=== PATIENT | male | born 1965 | race Caucasian/White ===

== ENCOUNTER → 2020-04-21 | Outpatient (CLI) | payer OTHER ==
--- NOTE | 2020-04-23 07:18 | REPPI ---
INDICATION: ELAVATED PSA Elevated prostate specific antigen levels. COMPARISON: None. TECHNIQUE: Transrectal ultrasound examination. FINDINGS: Examination demonstrates heterogeneous gland with small cystic changes and multiple scattered calcifications. Gland measures 3.3 x 2.3 x 5.0 cm (20 mL). Ultrasound-guided Biopsy performed by Dr. Priest included 13 passes with 18 gauge needle after the administration of local anesthetic. No obvious complications during examination as reported by vice provost. IMPRESSION: 1. Heterogeneous prostate gland. 2. Status post biopsy. <Electronically signed by Bari Praish > 04/23/20 0714
== END ==
LOC: M SMT PRO 10:18
PROVIDERS: ATTEND Urology
DX: R97.20 Elevated prostate specific antigen [PSA] (principal)
CPT/HCPCS: 55700; 76872; 76942; G0416

== ENCOUNTER → 2023-10-19 | Outpatient (CLI) | payer OTHER ==
[~2023-10-19] MED LIST: PROHANCE 279.3MG/ML 15ML VIAL As Ordered ONE
== END ==
LOC: M RAD 15:18
PROVIDERS: ATTEND Urology
DX: R97.20 Elevated prostate specific antigen [PSA] (principal)
CPT/HCPCS: 72197; A9576

== ENCOUNTER → 2023-11-21 | Outpatient (REF) | payer OTHER | LOC: M SMT PRO 12:39 | PROVIDERS: ATTEND Urology | DX: R97.20 Elevated prostate specific antigen [PSA] (principal) | CPT/HCPCS: 55700; 76942; G0416; J0665 ==

== ENCOUNTER 2023-12-27 10:03 | Inpatient (IN) | payer OTHER ==
[2023-12-27] VITALS (7 sets, daily range): BP systolic 111–131; BP diastolic 64–78; TEMP 98.1–98.8; O2SAT 92–97
[~2023-12-27] VITALS: Ht 177.8 cm; Wt 70.0 kg
[~2023-12-27 10:03] MED LIST changes: +LIDOCAINE 2% 100MG/5ML SDV (FOR ANES.) As Ordered ONE; +MIDAZOLAM INJ 2MG/2ML VIAL As Ordered ONE; +MULTTAB61 PO; -PROHANCE 279.3MG/ML 15ML VIAL As Ordered ONE; +ROCURONIUM BROMIDE 50MG/5ML VIAL As Ordered ONE; +VITA100093 PO; +fentaNYL 250 MCG/5 ML INJECTION As Ordered ONE; +propofoL 200 MG/20 ML VIAL As Ordered ONE
[2023-12-27] MEDS ORDERED: LR 1,000 ML IV SCH (10:30)
[2023-12-27] MEDS: ceFAZolin SOD 2 GM in IV 1 EA IV ONE (11:17)
[2023-12-27] MEDS: HEPARIN SOD (PORCINE) 5000UNITS/ML 1ML VIAL/SYRINGE SQ ONE (11:25)
[2023-12-27] MEDS ORDERED: HYDROmorphone HCL 2MG/ML 1ML VIAL As Ordered ONE (11:50)
[2023-12-27] MEDS ORDERED: ACETAMINOPHEN 1000MG 100ML IV BAG As Ordered ONE (12:03)
[2023-12-27] MEDS ORDERED: SUGAMMADEX SODIUM 500 MG/5 ML VIAL (BRIDION) As Ordered ONE (12:03)
[2023-12-27] MEDS ORDERED: ONDANSETRON 4MG 2ML VIAL As Ordered ONE (12:03)
[2023-12-27] MEDS ORDERED: GLYCOPYRROLATE INJ 0.2 MG/ML 2 ML VIAL As Ordered ONE (12:04)
[2023-12-27] MEDS: ceFAZolin 2 GM/D5W 50 ML IV BAG As Ordered ONE (15:30)
[2023-12-27] MEDS: LIDOCAINE 1% SDV 30ML VIAL As Ordered ONE (15:47)
[2023-12-27] MEDS ORDERED: fentaNYL 100 MCG/2 ML INJECTION IV PRN (15:50)
[2023-12-27] MEDS ORDERED: HYDROMORPHONE HCL 0.5 MG/ 0.5 ML SYRINGE IV PRN (15:50)
[2023-12-27] MEDS ORDERED: ACETAMINOPHEN TAB 650MG DOSE (2X325MG) PO PRN (16:00)
[2023-12-27] MEDS: oxyCODONE 5MG TAB PO PRN (17:06)
[2023-12-27] MEDS: ONDANSETRON 4MG 2ML VIAL IV PRN (17:06)
[2023-12-27 17:19] LABS: HEMATOCRIT 40.6 % (42.0-52.0); HEMOGLOBIN 13.2 g/dl (13.5-17.5); MEAN CORPUSCULAR HEMOGLOBIN 28.9 pg (27.0-33.0); MEAN CORPUSCULAR HGB CONC 32.5 g/dl (32.0-36.5); PLATELET COUNT, AUTOMATED 240 10^3/uL (150-450); RED BLOOD COUNT 4.56 10^6/uL (4.30-6.10); WHITE BLOOD COUNT 11.1 10^3/uL (4.0-10.0)
[2023-12-27 17:38] LABS: BLOOD UREA NITROGEN 14 MG/DL (9-23); CALCIUM LEVEL 8.8 MG/DL (8.5-10.1); CARBON DIOXIDE LEVEL 29 MMOL/L (20-31); CHLORIDE LEVEL 104 MMOL/L (98-107); CREATININE FOR GFR 0.85 MG/DL (0.70-1.30); GLOMERULAR FILTRATION RATE > 60.0 (>56); GLUCOSE, FASTING 130 MG/DL (60-100); SODIUM LEVEL 138 MMOL/L (136-145)
[2023-12-27] MEDS: NS 1,000 ML IV SCH (17:58)
[2023-12-27] MEDS: ceFAZolin SOD 1 GM in D5W MINI-BAG PLUS 50 ML IV SCH (19:42)
[2023-12-27] MEDS: DOCUSATE SODIUM 100MG CAPSULE PO SCH (19:43)
[2023-12-27] MEDS: PERCOCET 5MG/325MG TAB PO PRN (19:44)
[2023-12-27] MEDS: LR 1,000 ML IV SCH (21:39)
[2023-12-27] MEDS: HEPARIN SOD (PORCINE) 5000UNITS/ML 1ML VIAL/SYRINGE SC SCH (22:30)
[2023-12-28 03:10] VITALS: BP 122/72; TEMP 98.1; O2SAT 97
[2023-12-28] MEDS: PERCOCET 5MG/325MG TAB PO PRN (03:57)
[2023-12-28] MEDS ORDERED: PILL CUTTER 1 EACH XX PRN (04:15)
[2023-12-28] MEDS: SIMETHICONE 80MG CHEW TAB PO PRN (04:21)
[2023-12-28] MEDS: oxyBUTYnin 5 MG TAB PO PRN (04:21)
[2023-12-28 05:56] LABS: HEMATOCRIT 35.4 % (42.0-52.0); HEMOGLOBIN 11.7 g/dl (13.5-17.5); MEAN CORPUSCULAR HEMOGLOBIN 29.1 pg (27.0-33.0); MEAN CORPUSCULAR HGB CONC 33.1 g/dl (32.0-36.5); MEAN CORPUSCULAR VOLUME 88.1 fl (80.0-96.0); PLATELET COUNT, AUTOMATED 200 10^3/uL (150-450); RED BLOOD COUNT 4.02 10^6/uL (4.30-6.10); WHITE BLOOD COUNT 7.1 10^3/uL (4.0-10.0)
[2023-12-28 06:26] LABS: BLOOD UREA NITROGEN 11 MG/DL (9-23); CALCIUM LEVEL 8.2 MG/DL (8.5-10.1); CARBON DIOXIDE LEVEL 30 MMOL/L (20-31); CHLORIDE LEVEL 107 MMOL/L (98-107); CREATININE FOR GFR 0.84 MG/DL (0.70-1.30); GLOMERULAR FILTRATION RATE > 60.0 (>56); GLUCOSE, FASTING 116 MG/DL (60-100); POTASSIUM SERUM 4.3 MMOL/L (3.5-5.1); SODIUM LEVEL 140 MMOL/L (136-145)
[2023-12-28 08:00] VITALS: BP 120/70; TEMP 98.2; O2SAT 98
[2023-12-28] MEDS: ONDANSETRON 4MG 2ML VIAL IV PRN (08:56)
[2023-12-28] MEDS: NICOTINE POLACRILEX 2 MG GUM PO PRN (10:43)
[2023-12-28 12:00] VITALS: BP 107/64; TEMP 98.8; O2SAT 93
[2023-12-28] MEDS ORDERED: COLA100C5 PO (13:37)
[2023-12-28] MEDS ORDERED: PERCOCET PO (13:37)
[2023-12-28] MEDS ORDERED: BACT800T5 PO (13:37)
== END 2023-12-28 15:50 | disposition home or self-care (01) | DRG 708 ==
LOC: M OR 10:03 → M MSPAV 17:54
PROVIDERS: ADMIT Urology; ATTEND Urology
PROC: 07BC4ZZ Excision of Pelvis Lymphatic, Percutaneous Endoscopic Approach (ICD-10-PCS; 2023-12-27)
PROC: 0VT04ZZ Resection of Prostate, Percutaneous Endoscopic Approach (ICD-10-PCS; principal; 2023-12-27 11:55)
DX: C61 Malignant neoplasm of prostate (principal); F17.290 Nicotine dependence, other tobacco product, uncomplicated; R73.03 Prediabetes; Z88.8 Allergy status to other drugs, medicaments and biological substances; Z79.899 Other long term (current) drug therapy